=== PATIENT | male | born 1955 | race Caucasian/White ===

== ENCOUNTER 2017-06-24 19:11 | Inpatient (IN) | payer BC ==
[~2017-06-24] VITALS: Ht 182.9 cm; Wt 94.0 kg
[2017-06-24 20:23] LABS: HEMATOCRIT 54.3 % (39.2-51.8); HEMOGLOBIN 18.7 g/dL (13.7-18.0); WHITE BLOOD COUNT 10.9 x10^3/uL (3.4-10)
[2017-06-24 20:35] LABS: ASPARTATE AMINO TRANSFERASE 45 U/L (15-37); BLOOD UREA NITROGEN 19 mg/dL (7-18)
[2017-06-24 21:30] LABS: PATH.CAST-FLAG NOT PRESENT; SPERM-FLAG NOT PRESENT; SRC-FLAG NOT PRESENT; XTAL-FLAG NOT PRESENT; YLC-FLAG NOT PRESENT
[2017-06-24] MEDS ORDERED: GADOBUTROL 10 MMOL/10 ML PFS ONE (23:54)
[2017-06-25] MEDS ORDERED: SODIUM CHLORIDE 0.9% 1,000ML IVBOLUS ONE (01:30)
[2017-06-25] MEDS ORDERED: DEXAMETHASONE 4 MG/ML, 1ML IVPush ONE (01:30)
[2017-06-25] MEDS ORDERED: ONDANSETRON 2MG/ML, 2ML IVPush ONE (01:30)
[2017-06-25] MEDS ORDERED: SODIUM CHLORIDE FLUSH 10ML SYR IVF ONE (01:30)
[2017-06-25] MEDS ORDERED: MORPHINE SULFATE 4 MG/ML, 1ML IVPush PRN (01:30)
[2017-06-25] MEDS ORDERED: ENALAPRILAT 1.25 MG/ML, 2ML IVPush PRN (02:00)
[2017-06-25] MEDS ORDERED: ACETAMINOPHEN 325 MG TABLET PO PRN (02:00)
[2017-06-25] MEDS ORDERED: POLYETHYLENE GLYCOL 17 GM PACKET PO PRN (02:00)
[2017-06-25] MEDS ORDERED: ONDANSETRON 2MG/ML, 2ML IVPush PRN (02:00)
[2017-06-25] MEDS ORDERED: BISACODYL 10 MG SUPP PR PRN (02:00)
[2017-06-25] MEDS ORDERED: METHOCARBAMOL 750 MG TABLET PO PRN (02:00)
[2017-06-25] MEDS ORDERED: hydrALAzine 20 MG/ML, 1ML IVPush PRN (02:00)
[2017-06-25] MEDS ORDERED: OXYcodone IR 5MG TABLET PO PRN (02:00)
[2017-06-25] MEDS ORDERED: morphine SULFATE 10 MG/ML, 1ML IVPush PRN (02:00)
[2017-06-25] MEDS ORDERED: DEXAMETHASONE 4 MG/ML, 5ML ONE (02:16)
[2017-06-25] MEDS ORDERED: MORPHINE SULFATE 4 MG/ML, 1ML ONE (02:17)
[2017-06-25] MEDS ORDERED: ONDANSETRON 2MG/ML, 2ML ONE (02:17)
[2017-06-25] MEDS: SODIUM CHLORIDE 0.9% 1,000 ML IV SCH ×3 (05:34→20:32)
[2017-06-25] MEDS: DEXAMETHASONE 4 MG/ML, 1ML IVPush SCH ×3 (06:36→17:58)
[2017-06-25] MEDS: PANTOPROZOLE 40MG TABLET PO SCH (07:30)
[2017-06-25 07:34] VITALS: BP 127/79
[2017-06-25] MEDS: SENNA/DOCUSATE TABLET PO SCH (09:00)
[2017-06-25 13:43] VITALS: BP 128/76
[2017-06-25 20:24] VITALS: BP 121/81
[2017-06-26] MEDS: DEXAMETHASONE 4 MG/ML, 1ML IVPush SCH ×5 (00:06→23:48)
[2017-06-26 04:48] LABS: HEMATOCRIT 48.9 % (39.2-51.8); HEMOGLOBIN 16.8 g/dL (13.7-18.0); WHITE BLOOD COUNT 15.2 x10^3/uL (3.4-10)
[2017-06-26 04:56] LABS: BLOOD UREA NITROGEN 21 mg/dL (7-18)
[2017-06-26 05:02] LABS: ASPARTATE AMINO TRANSFERASE 21 U/L (15-37)
[2017-06-26 07:59] VITALS: BP 106/71
[2017-06-26] MEDS: SENNA/DOCUSATE TABLET PO SCH (08:09)
[2017-06-26] MEDS: PANTOPROZOLE 40MG TABLET PO SCH (08:09)
[2017-06-26 11:41] LABS: HEMATOCRIT 48.4 % (39.2-51.8); HEMOGLOBIN 16.7 g/dL (13.7-18.0); WHITE BLOOD COUNT 17.7 x10^3/uL (3.4-10)
[2017-06-26 11:53] LABS: BLOOD UREA NITROGEN 20 mg/dL (7-18)
[2017-06-26 14:13] VITALS: BP 111/71
[2017-06-26 19:09] VITALS: BP 116/75
[2017-06-26] MEDS ORDERED: METHOCARBAMOL 750 MG TABLET PO PRN (20:00)
[2017-06-26] MEDS ORDERED: ENALAPRILAT 1.25 MG/ML, 2ML IVPush PRN (20:00)
[2017-06-26] MEDS ORDERED: ACETAMINOPHEN 325 MG TABLET PO PRN (20:00)
[2017-06-26] MEDS ORDERED: BISACODYL 10 MG SUPP PR PRN (20:00)
[2017-06-26] MEDS ORDERED: hydrALAzine 20 MG/ML, 1ML IVPush PRN (20:00)
[2017-06-26] MEDS ORDERED: ONDANSETRON 2MG/ML, 2ML IVPush PRN (20:00)
[2017-06-26] MEDS ORDERED: POLYETHYLENE GLYCOL 17 GM PACKET PO PRN (20:00)
[2017-06-26] MEDS: SODIUM CHLORIDE 0.9% 1,000 ML IV SCH (23:49)
[2017-06-27 01:59] VITALS: BP 115/68
[2017-06-27] MEDS ORDERED: TEMAZEPAM 15 MG CAPSULE PO ONE ×2 (03:00→21:00)
[2017-06-27] MEDS ORDERED: BUPIVACAINE/PF 0.5% ONE (03:30)
[2017-06-27] MEDS ORDERED: EPINEPHRINE 1 MG/ML, 1ML ONE (03:31)
[2017-06-27] MEDS ORDERED: THROMBIN 5,000 UNIT VIAL TP ONE ×2 (03:31→09:37)
[2017-06-27] MEDS ORDERED: VANCOMYCIN 1,000 MG ONE (03:31)
[2017-06-27] MEDS: DEXAMETHASONE 4 MG/ML, 1ML IVPush SCH ×3 (05:26→19:26)
[2017-06-27 06:27] LABS: HEMATOCRIT 44.8 % (39.2-51.8); HEMOGLOBIN 15.3 g/dL (13.7-18.0); WHITE BLOOD COUNT 19.1 x10^3/uL (3.4-10)
[2017-06-27 06:39] LABS: BLOOD UREA NITROGEN 22 mg/dL (7-18)
[2017-06-27] MEDS ORDERED: MIDAZOLAM 1 MG/ML, 2ML ONE (06:52)
[2017-06-27] MEDS ORDERED: ONDANSETRON 2MG/ML, 2ML ONE (06:52)
[2017-06-27] MEDS ORDERED: FENTANYL PF 100 MCG/2ML ONE (06:52)
[2017-06-27] MEDS ORDERED: DEXAMETHASONE 4 MG/ML, 1ML ONE (06:52)
[2017-06-27] MEDS ORDERED: CEFAZOLIN 1,000 MG ONE (06:52)
[2017-06-27] MEDS ORDERED: SUCCINYLCHOLINE 20 MG/ML, 10ML ONE (06:52)
[2017-06-27] MEDS ORDERED: PROPOFOL 10 MG/ML, 20ML ONE ×2 (06:52→10:29)
[2017-06-27] MEDS ORDERED: ROCURONIUM 10 MG/ML ONE (06:52)
[2017-06-27] MEDS ORDERED: LIDOCAINE GEL 2%, 5ML ONE (06:56)
[2017-06-27] MEDS ORDERED: REMIFENTANIL 2 MG ONE (07:02)
[2017-06-27] MEDS ORDERED: PROPOFOL 50 ML ONE (07:06)
[2017-06-27] MEDS: PANTOPROZOLE 40MG TABLET PO SCH (07:30)
[2017-06-27] MEDS ORDERED: BACITRACIN 50,000 UNIT ONE (08:17)
[2017-06-27] MEDS ORDERED: BUPIVACAINE/PF-EPI 0.5% 1:200K IM ONE (08:31)
[2017-06-27] MEDS ORDERED: HYDROmorphone 1 MG/ML, 1ML ONE ×2 (08:32→11:29)
[2017-06-27] MEDS: TAMSULOSIN 0.4 MG CAP.ER.24H PO SCH (09:00)
[2017-06-27] MEDS: SENNA/DOCUSATE TABLET PO SCH (09:00)
[2017-06-27] MEDS: SODIUM CHLORIDE 0.9% 1,000 ML IV SCH ×3 (10:00→13:20)
[2017-06-27] MEDS: FENTANYL PF 100 MCG/2ML IV PRN ×2 (11:05→11:10)
[2017-06-27] MEDS: HYDROmorphone 1 MG/ML, 1ML IV PRN ×4 (11:15→11:45)
[2017-06-27] MEDS ORDERED: ONDANSETRON 2MG/ML, 2ML IVPush PRN (11:30)
[2017-06-27] MEDS ORDERED: OXYcodone 5 MG/5 ML ORAL.SOL UDC PO PRN (11:30)
[2017-06-27] MEDS ORDERED: HYDROcodone/APAP 7.5-325MG/15ML UDC PO PRN (11:30)
[2017-06-27] MEDS ORDERED: ACETAMINOPHEN 325 MG TABLET PO PRN (11:30)
[2017-06-27] MEDS ORDERED: PROMETHAZINE 25 MG/ML, 1ML IV PRN (11:30)
[2017-06-27] MEDS ORDERED: LORazepam 2 MG/ML, 1ML IVPush PRN (11:30)
[2017-06-27] MEDS ORDERED: OXYcodone 5 MG/5 ML ORAL.SOL UDC ONE (11:41)
[2017-06-27 12:33] VITALS: BP 122/75
[2017-06-27] MEDS ORDERED: ONDANSETRON 2MG/ML, 2ML IV PRN (13:30)
[2017-06-27] MEDS ORDERED: OXYcodone/APAP 5/325MG TABLET PO PRN (13:30)
[2017-06-27] MEDS ORDERED: DIPHENHYDRAMINE 50 MG/ML, 1ML IM PRN (13:30)
[2017-06-27] MEDS ORDERED: HYDROcodone/APAP 5/325 TABLET PO PRN (13:30)
[2017-06-27] MEDS ORDERED: morphine SULFATE 10 MG/ML, 1ML IV PRN (13:30)
[2017-06-27] MEDS ORDERED: DIPHENHYDRAMINE 50 MG/ML, 1ML IVPush PRN (13:30)
[2017-06-27] MEDS ORDERED: MAGNESIUM HYDROXIDE 8%, 30ML UDC PO PRN (13:30)
[2017-06-27] MEDS ORDERED: HYDROcodone/APAP 10/325 MG TABLET PO PRN (13:30)
[2017-06-27] MEDS ORDERED: PROMETHAZINE 25 MG/ML, 1ML IM PRN (13:30)
[2017-06-27] MEDS ORDERED: DIPHENHYDRAMINE 50 MG CAPSULE PO PRN (13:30)
[2017-06-27] MEDS ORDERED: METHOCARBAMOL 1,000 MG in DEXTROSE 5% 100 ML IV ONE (13:30)
[2017-06-27] MEDS ORDERED: BISACODYL 10 MG SUPP PR PRN (13:30)
[2017-06-27] MEDS: NS + 20MEQ KCL 1,000 ML IV SCH (14:37)
[2017-06-27 20:23] VITALS: BP 101/70
[2017-06-27] MEDS ORDERED: ZOLPIDEM 5MG TABLET PO PRN (21:00)
[2017-06-27] MEDS: METHOCARBAMOL 750 MG in DEXTROSE 5% 100 ML IV SCH (22:09)
[2017-06-28 00:08] VITALS: BP 107/69
[2017-06-28] MEDS: SODIUM CHLORIDE 0.9% 1,000 ML IV SCH ×2 (01:01→15:01)
[2017-06-28] MEDS: DEXAMETHASONE 4 MG/ML, 1ML IVPush SCH ×4 (01:14→20:10)
[2017-06-28] MEDS: NS + 20MEQ KCL 1,000 ML IV SCH ×2 (01:14→13:36)
[2017-06-28 03:58] VITALS: BP 103/70
[2017-06-28 05:14] LABS: HEMATOCRIT 38.9 % (39.2-51.8); HEMOGLOBIN 13.2 g/dL (13.7-18.0); WHITE BLOOD COUNT 17.3 x10^3/uL (3.4-10)
[2017-06-28 05:21] LABS: BLOOD UREA NITROGEN 16 mg/dL (7-18)
[2017-06-28] MEDS: METHOCARBAMOL 750 MG in DEXTROSE 5% 100 ML IV SCH ×3 (05:22→21:35)
[2017-06-28 07:22] VITALS: BP 98/62
[2017-06-28] MEDS: PANTOPROZOLE 40MG TABLET PO SCH (07:43)
[2017-06-28] MEDS: TAMSULOSIN 0.4 MG CAP.ER.24H PO SCH (07:44)
[2017-06-28] MEDS: SENNA/DOCUSATE TABLET PO SCH (07:45)
[2017-06-28] MEDS: OXYcodone IR 5MG TABLET PO PRN ×3 (10:51→20:10)
[2017-06-28 13:16] VITALS: BP 113/68
[2017-06-28 19:10] VITALS: BP 112/54
[2017-06-29] MEDS: NS + 20MEQ KCL 1,000 ML IV SCH ×2 (01:39→13:42)
[2017-06-29] MEDS: OXYcodone IR 5MG TABLET PO PRN ×5 (02:22→21:00)
[2017-06-29] MEDS: DEXAMETHASONE 4 MG/ML, 1ML IVPush SCH ×4 (02:23→19:22)
[2017-06-29] MEDS: SODIUM CHLORIDE 0.9% 1,000 ML IV SCH (02:29)
[2017-06-29 02:31] VITALS: BP 117/68
[2017-06-29] MEDS: METHOCARBAMOL 750 MG in DEXTROSE 5% 100 ML IV SCH ×2 (05:26→13:48)
[2017-06-29] MEDS: HEPARIN 5,000 UNITS/ML, 1ML SQ SCH ×3 (05:26→22:32)
[2017-06-29 05:45] LABS: HEMATOCRIT 35.4 % (39.2-51.8); HEMOGLOBIN 12.3 g/dL (13.7-18.0); WHITE BLOOD COUNT 15.7 x10^3/uL (3.4-10)
[2017-06-29 05:59] LABS: BLOOD UREA NITROGEN 14 mg/dL (7-18)
[2017-06-29 07:54] VITALS: BP 131/80
[2017-06-29] MEDS: TAMSULOSIN 0.4 MG CAP.ER.24H PO SCH (08:13)
[2017-06-29] MEDS: PANTOPROZOLE 40MG TABLET PO SCH (08:13)
[2017-06-29] MEDS: SENNA/DOCUSATE TABLET PO SCH (08:13)
[2017-06-29] MEDS ORDERED: BISACODYL 10 MG SUPP PR ONE (09:00)
[2017-06-29] MEDS: CALCIUM CARBONATE 500 MG TABLET PO SCH ×2 (11:11→20:59)
[2017-06-29 13:36] VITALS: BP 125/63
[2017-06-29] MEDS: morphine SULFATE 10 MG/ML, 1ML IVPush PRN (17:55)
[2017-06-29 19:40] VITALS: BP 132/68
[2017-06-29] MEDS: METHOCARBAMOL 750 MG TABLET PO SCH (20:59)
[2017-06-30] MEDS: morphine SULFATE 10 MG/ML, 1ML IVPush PRN (00:16)
[2017-06-30] MEDS: NS + 20MEQ KCL 1,000 ML IV SCH ×2 (01:45→13:44)
[2017-06-30] MEDS: DEXAMETHASONE 4 MG/ML, 1ML IVPush SCH ×3 (01:50→13:30)
[2017-06-30] MEDS: OXYcodone IR 5MG TABLET PO PRN ×5 (01:50→19:18)
[2017-06-30 03:05] VITALS: BP 136/85
[2017-06-30 05:49] LABS: HEMATOCRIT 38.8 % (39.2-51.8); HEMOGLOBIN 13.2 g/dL (13.7-18.0); WHITE BLOOD COUNT 18.7 x10^3/uL (3.4-10)
[2017-06-30] MEDS: HEPARIN 5,000 UNITS/ML, 1ML SQ SCH ×4 (05:55→21:47)
[2017-06-30] MEDS: METHOCARBAMOL 750 MG TABLET PO SCH ×3 (05:55→21:46)
[2017-06-30 06:05] LABS: BLOOD UREA NITROGEN 19 mg/dL (7-18)
[2017-06-30 07:45] VITALS: BP 138/80
[2017-06-30] MEDS: SENNA/DOCUSATE TABLET PO SCH (07:52)
[2017-06-30] MEDS: TAMSULOSIN 0.4 MG CAP.ER.24H PO SCH (07:53)
[2017-06-30] MEDS: CALCIUM CARBONATE 500 MG TABLET PO SCH ×2 (07:53→21:46)
[2017-06-30] MEDS: PANTOPROZOLE 40MG TABLET PO SCH (07:53)
[2017-06-30 13:50] VITALS: BP 128/73
[2017-06-30 18:45] VITALS: BP 137/80
[2017-07-01] MEDS: NS + 20MEQ KCL 1,000 ML IV SCH (01:15)
[2017-07-01 03:15] VITALS: BP 122/80
[2017-07-01] MEDS: OXYcodone IR 5MG TABLET PO PRN ×2 (04:01→09:41)
[2017-07-01 06:08] LABS: HEMATOCRIT 38.1 % (39.2-51.8); HEMOGLOBIN 13.2 g/dL (13.7-18.0); WHITE BLOOD COUNT 20.8 x10^3/uL (3.4-10)
[2017-07-01 06:19] LABS: BLOOD UREA NITROGEN 19 mg/dL (7-18)
[2017-07-01 06:23] LABS: ASPARTATE AMINO TRANSFERASE 16 U/L (15-37)
[2017-07-01] MEDS: METHOCARBAMOL 750 MG TABLET PO SCH ×2 (06:25→13:30)
[2017-07-01] MEDS: HEPARIN 5,000 UNITS/ML, 1ML SQ SCH (06:25)
[2017-07-01 07:34] VITALS: BP 120/76
[2017-07-01] MEDS: CALCIUM CARBONATE 500 MG TABLET PO SCH (09:41)
[2017-07-01] MEDS: PANTOPROZOLE 40MG TABLET PO SCH (09:41)
[2017-07-01] MEDS: SENNA/DOCUSATE TABLET PO SCH (09:41)
[2017-07-01] MEDS: TAMSULOSIN 0.4 MG CAP.ER.24H PO SCH (09:41)
[2017-07-01] MEDS ORDERED: METH750T87 PO (10:24)
[2017-07-01] MEDS ORDERED: MORP-52 PO ×2 (10:26→10:27)
[2017-07-01] MEDS ORDERED: OXYC10TA6 PO (10:29)
[2017-07-01] MEDS ORDERED: DOCU-131 PO (10:30)
[2017-07-01] MEDS ORDERED: TAMS-11 PO (10:31)
[2017-07-01] MEDS ORDERED: MAGN400O7 PO (10:33)
[2017-07-01 11:58] VITALS: BP 106/67
[2017-07-01] MEDS ORDERED: FLU VACC QS2017-18 (36MOS+) UP/PF 0.5 ML IM-VACC ONE (12:30)
[2017-07-01] MEDS ORDERED: OXYcodone IR 5MG TABLET PO PRN (12:45)
[2017-07-01 13:06] VITALS: BP 122/72
[2017-07-01] MEDS ORDERED: HEPARIN 5,000 UNITS/ML, 1ML SQ SCH (14:00)
[2017-07-02] MEDS ORDERED: SENNA/DOCUSATE TABLET PO SCH (09:00)
== END 2017-07-01 14:03 | disposition home or self-care (01) | DRG 460 ==
LOC: ED 06-25 00:58 → EDIP 06-25 01:15 → 3NW 06-25 04:53 → 4NOR 06-27 08:51 → 3NW 06-30 16:33 → 4NOR 06-30 16:35 → DCLOUNGE 07-01 13:24
PROVIDERS: ADMIT Internal Medicine; ATTEND Internal Medicine
PROC: 01NB0ZZ Release Lumbar Nerve, Open Approach (ICD-10-PCS; 2017-06-27)
PROC: 4A11X4G Monitoring of Peripheral Nervous Electrical Activity, Intraoperative, External Approach (ICD-10-PCS; 2017-06-27)
PROC: 0SG00AJ Fusion of Lumbar Vertebral Joint with Interbody Fusion Device, Posterior Approach, Anterior Column, Open Approach (ICD-10-PCS; principal; 2017-06-27 07:30)
DX: M48.062 Spinal stenosis, lumbar region with neurogenic claudication (principal); D75.1 Secondary polycythemia; G95.20 Unspecified cord compression; E83.51 Hypocalcemia; M41.9 Scoliosis, unspecified; M51.16 Intervertebral disc disorders with radiculopathy, lumbar region; D72.829 Elevated white blood cell count, unspecified; E03.9 Hypothyroidism, unspecified; E78.5 Hyperlipidemia, unspecified; E86.0 Dehydration; H93.19 Tinnitus, unspecified ear; N39.490 Overflow incontinence; R33.9 Retention of urine, unspecified
CPT/HCPCS: 36415; 70450; 71010; 72100; 72157; 72158; 80048; 80053; 80061; 81001; 82040; 82306; 83036; 83735; 84100; 84439; 84443; 85025; 85610; 85730; 87040; 87086; 90686; 96374; A9585; C1713; J0171; J0690; J1100; J1170; J1644; J2250; J2270; J2405; J2704; J3010; J3370; J3480; J3490; C1762; J0330; J1200; J2800; J7030

== ENCOUNTER → 2017-07-16 | Outpatient (CLI) | payer BC ==
[~2017-07-16] MED LIST: DOCU-131 PO; FENTANYL PF 100 MCG/2ML ONE; HYDROmorphone 1 MG/ML, 1ML ONE; MAGN400O7 PO; METH750T87 PO; MORP-52 PO; OXYC10TA6 PO; TAMS-11 PO
== END | disposition home or self-care (01) ==
LOC: RAD 14:29
PROVIDERS: ATTEND Registered Nurse
DX: M48.061 Spinal stenosis, lumbar region without neurogenic claudication (principal); M48.07 Spinal stenosis, lumbosacral region; M47.816 Spondylosis without myelopathy or radiculopathy, lumbar region; M47.817 Spondylosis without myelopathy or radiculopathy, lumbosacral region; Z98.890 Other specified postprocedural states; Z98.1 Arthrodesis status
CPT/HCPCS: 72100; 72148